=== PATIENT | male | born 1965 | race Caucasian/White ===

== ENCOUNTER 2017-03-22 15:21 | Emergency (ER) | payer OTHER ==
[~2017-03-22] VITALS: Ht 190.5 cm; Wt 118.0 kg
[2017-03-22 15:23] VITALS: BP 175/94; PULSE 89; RESP 15; TEMP 98.9; O2SAT 97
--- NOTE | 2017-03-22 15:29 | PD ---
Physical Exam Date Seen by Provider: Mar 22, 2017 Time Seen by Provider: 15:28 Narrative 51 yo male here for left elbow pain and swelling. pain is 8/10. Worse with movement. Cannot move the elbow secondary to pain. Going on since monday. No chest pain. No other injury noted. Vitals are stable in triage. Awaiting bed placement. Data Data Last Documented VS Vital Signs Date Time Temp Pulse Resp B/P Pulse Ox O2 Delivery O2 Flow Rate FiO2 03/22/17 15:23 98.9 89 15 175/94 97 MDM Medical Record Reviewed: Yes Supervised Visit with MILEY: Aryan Castano Mar 22, 2017 15:29
--- NOTE | 2017-03-22 15:40 | PD ---
HPI Chief Complaint: Injury Time Seen by Provider: 15:40 Travel History International Travel<30 days: No Contact w/Intl Traveler<30days: No Traveled to known affect area: No History of Present Illness HPI 51-year-old male presents to emergency Department with complaint of swelling and pain to his left elbow since Monday evening. Denies injury. Patient does have history of gout and takes allopurinol. He has not had a gout exacerbation for many years and this is not consistent with his past gout exacerbation. Says his symptoms are more similar to an arthritis flareup in his right knee. He denies paresthesias to the affected extremity. Reports decreased range of motion and strength to the left elbow. Denies fever, vomiting. Has been taking Motrin for symptom management. Pain is worse with movement. No known allergies. Has no medical complaints. No other modifying factors or associated signs and symptoms. PFSH Past Medical History Cardiovascular Problems: Yes (HTN ) Diabetes: Yes (BORDERLINE ) Patient Takes Glucophage: Yes Hypertension: Yes Social History Alcohol Use: Yes Tobacco Use: No Substance Use: No Allergies-Medications (Allergen,Severity, Reaction): Coded Allergies: No Known Allergies (Unverified , 03/22/17) Reported Meds & Prescriptions Reported Meds & Active Scripts Active Bactrim DS (Sulfamethoxazole-Trimethoprim) 800-160 Mg Tab 1 Tab PO BID 10 Days Keflex (Cephalexin) 500 Mg Cap 500 Mg PO Q6H 10 Days Ibuprofen 800 Mg Tab 800 Mg PO Q6HR PRN Deltasone (Prednisone) 20 Mg Tab 40 Mg PO DAILY 4 Days start 03/23/2017 Review of Systems Except as stated in HPI: all other systems reviewed are Neg Physical Exam Narrative GENERAL: Well-nourished, well-developed male patient, in no acute distress; afebrile, nontoxic-appearing SKIN: Warm and dry. HEAD: Atraumatic. Normocephalic. EYES: Pupils equal and round. No scleral icterus. No injection or drainage. ENT: Mucosa pink and moist. Airway patent. NECK: Trachea midline. CARDIOVASCULAR: Regular rate. RESPIRATORY: No accessory muscle use. GASTROINTESTINAL: Rounded. MUSCULOSKELETAL: Left elbow with full range of motion; with edema, erythema and warmth to touch; with tenderness on palpation; with full analysis tester strength; sensory intact; 2+ radial pulse; with limited range of motion at the elbow joint secondary to pain. Left Upper extremity supple and nontense with 2+ radial pulse and sensory intact. No obvious deformities. No clubbing. No cyanosis. No edema. NEUROLOGICAL: Awake and alert. Oriented 3. No obvious cranial nerve deficits. Motor grossly within normal limits. Normal speech. PSYCHIATRIC: Appropriate mood and affect; insight and judgment normal. Data Data Last Documented VS Vital Signs Date Time Temp Pulse Resp B/P Pulse Ox O2 Delivery O2 Flow Rate FiO2 03/22/17 15:23 98.9 89 15 175/94 97 Orders Ketorolac Inj (Toradol Inj) (03/22/17 15:45) Prednisone (Deltasone) (03/22/17 15:45) Sling Cradle Arm (03/22/17 ) Elbow, Complete (4 Vws) (03/22/17 15:38) Sling Cradle Arm (03/22/17 ) [facility] Medical Decision Making Medical Screen Exam Complete: Yes Emergency Medical Condition: Yes Medical Record Reviewed: Yes Differential Diagnosis Bursitis, arthritis, gout exacerbation, cellulitis, less likely septic joint Narrative Course 51-year-old male with erythema and edema of the left elbow. Denies injury. I do not suspect septic joint. Patient is afebrile and nontoxic-appearing. Denies fever or vomiting. Has history of gout and takes allopurinol but states this is not consistent with his past gout exacerbations. Toradol and Deltasone administered in the ER. Left elbow x-ray ordered. 1626: Left elbow x-ray with no acute findings; with Olecranon spur. I will treat the patient with antibiotics for possible cellulitis. Keflex, Bactrim, Deltasone, ibuprofen prescribed for home. Arm sling provided for support. Instructed patient to follow up with orthopedics. Patient verbalizes understanding and agreement with treatment plan. Patient is medically cleared and stable for discharge. Discussed reasons to return to the emergency department. Instructed patient to follow up with primary care provider. Patient agrees with treatment plan. The patients vital signs are stable and the patient is stable for outpatient follow-up and treatment. Patient discharged home, stable and in no acute distress. Diagnosis Primary Impression: Pain and swelling of left elbow Referrals: Primary Care Physician Patient Instructions: General Instructions Additional Instructions: Ibuprofen or Tylenol as directed and as needed for pain and inflammation Rest and immobilize the affected extremity Arm sling as needed for support Apply ice to affected area Avoid elbow pressure by not leaning or placing your weight on your elbow to rise from a lying or sitting position Follow-up with primary care provider Follow-up with orthopedic Return to the emergency department immediately with worsening of symptoms Med/Other Pt SpecificInfo: Prescription(s) given Scripts Sulfamethoxazole-Trimethoprim (Bactrim DS)800-160 Mg Tab1 Tab PO BID 10 Days Ref 0 Prov:Eugenia Hernández 03/22/17 Cephalexin (Keflex)500 Mg Vhh625 Mg PO Q6H 10 Days Ref 0 Prov:Eugenia Hernández 03/22/17 Ibuprofen 800 Mg [id number] Mg PO Q6HR PRN (PAIN) #30 TAB Ref 0 Prov:Eugenia Hernández 03/22/17 Prednisone (Deltasone)20 Mg Tab40 Mg PO DAILY 4 Days Ref 0 start 03/23/2017 Prov:Eugenia Hernández 03/22/17 Disposition: 01 DISCHARGE HOME Condition: Stable Eugenia Hernández Mar 22, 2017 15:40
[2017-03-22] MEDS ORDERED: KETOROLAC TROMETHAMINE 60 MG/2 ML (IM) VIAL IM ONE (15:45)
[2017-03-22] MEDS ORDERED: predniSONE 20 MG TAB PO ONE (15:45)
[2017-03-22] MEDS ORDERED: BACT800T5 PO (15:52)
[2017-03-22] MEDS ORDERED: IBUP800T23 PO (15:52)
[2017-03-22] MEDS ORDERED: PRED-503 PO (15:52)
[2017-03-22] MEDS ORDERED: CEPH-460 PO (15:52)
--- NOTE | 2017-03-22 16:13 | RADRPT ---
EXAM DATE/TIME: 03/22/2017 16:01 [facility] COMPARISON: No previous studies available for comparison. INDICATIONS : Left elbow pain and swelling. No known trauma. MEDICAL HISTORY : None. SURGICAL HISTORY : None. ENCOUNTER: Initial ACUITY: 3 days PAIN SCORE: 8/10 LOCATION: Left elbow. FINDINGS: There is no acute fracture or dislocation of the left elbow. A small olecranon spur is noted. No el bow joint effusion is noted. CONCLUSION: 1. No acute fracture or dislocation. 2. Small olecranon spur. Junito Tejada MD on March 22, 2017 at 16:09 Board Certified Radiologist. This report was verified electronically.
== END 2017-03-22 16:52 | disposition home or self-care (01) ==
LOC: NEPK 15:21
DX: M25.522 Pain in left elbow (principal); M79.89 Other specified soft tissue disorders; I10 Essential (primary) hypertension
CPT/HCPCS: 73080; 96372; 99284; J1885; J7512